=== PATIENT | female | born 1980 | race Caucasian/White ===

== ENCOUNTER 2020-06-25 21:46 | Inpatient (IN) | payer OTHER ==
[~2020-06-25] VITALS: Ht 167.6 cm; Wt 50.0 kg
[2020-06-26 00:40] LABS: BILIRUBIN,TOTAL 0.4 mg/dL (0.0-1.0); CALCIUM 8.9 mg/dL (8.4-10.2); CREATININE, serum 0.54 (0.52-1.25); POTASSIUM 3.6 mmol/L (3.4-5.0); TOTAL PROTEIN 6.7 gm/dL (6.4-8.2)
[2020-06-26 00:44] LABS: BASO % 0.2 % (0.0-2.0); EOS # 0.1 (0.0-0.7); EOS % 0.5 % (0-4.0); GRAN # 11.7 (1.4-6.5); GRAN % 82.3 % (42.2-75.2); HEMATOCRIT 34.8 % (37.0-47.0); HEMOGLOBIN 11.4 g/dl (12.5-16.0); LYMPH # 1.2 (1.2-3.4); LYMPH % 8.5 % (20.0-51.0); MEAN CELL VOLUME 91 fl (80.0-100.0); MEAN CORPUSCULAR HEMOGLOBIN 30 pg (27.0-31.0); MEAN CORPUSCULAR HGB CONC 33 g/dl (33.0-37.0); MEAN PLATELET VOLUME 9.9 fl (7.4-10.4); MONO # 1.1 (0.1-0.6); PLATELET COUNT 264 K/mm3 (130-400); RED BLOOD COUNT 3.83 M/mm3 (4.10-5.30); REDCELL DISTRIBUTION WIDTH-CV 11.9 % (11.5-14.5)
[2020-06-26 01:00] VITALS: BP 118/62; PULSE 96; TEMP 98.2
--- NOTE | 2020-06-26 01:00 | NUR ---
Pt arrived on unit from ED via stretcher. Assisted pt to bed. Oriented to room, bed and call light within reach. IV antibiotics infusing. See EMAR for details. Plan of care and orders reviewed with pt.
[2020-06-26 06:00] VITALS: BP 86/46; PULSE 86; TEMP 98.4
[2020-06-26 09:17] VITALS: BP 88/45; PULSE 89; TEMP 98.2
--- NOTE | 2020-06-26 09:28 | NUR ---
Initial visit; attempt; Patient sleeping, [employer] Custodian left card with information regarding the availability of spiritual care at our hospital.
[2020-06-26 13:00] VITALS: BP 82/45; PULSE 87; TEMP 98.1
[2020-06-26 17:58] VITALS: BP 82/37; PULSE 84; TEMP 97.4
[2020-06-26 20:30] VITALS: BP 85/54; PULSE 92; TEMP 97.7
[2020-06-27 01:00] VITALS: BP 90/40; PULSE 90; TEMP 97.7
[2020-06-27 05:30] VITALS: BP 92/40; PULSE 71; TEMP 97.9
[2020-06-27 09:00] VITALS: BP 90/44; PULSE 89; TEMP 98.3
[2020-06-27 09:22] LABS: BASO % 0.3 % (0.0-2.0); EOS # 0.2 (0.0-0.7); EOS % 2.1 % (0-4.0); GRAN # 6.5 (1.4-6.5); GRAN % 72.2 % (42.2-75.2); HEMOGLOBIN 10.8 g/dl (12.5-16.0); LYMPH # 1.6 (1.2-3.4); LYMPH % 17.8 % (20.0-51.0); MEAN CELL VOLUME 93 fl (80.0-100.0); MEAN CORPUSCULAR HEMOGLOBIN 30 pg (27.0-31.0); MEAN CORPUSCULAR HGB CONC 32 g/dl (33.0-37.0); MEAN PLATELET VOLUME 10.3 fl (7.4-10.4); MONO # 0.7 (0.1-0.6); MONO % 7.3 % (1.7-9.3); PLATELET COUNT 249 K/mm3 (130-400); RED BLOOD COUNT 3.58 M/mm3 (4.10-5.30)
[2020-06-27 09:26] LABS: HEMATOCRIT 33.4 % (37.0-47.0)
--- NOTE | 2020-06-27 11:31 | NUR ---
Financial Counselor, Alejandrina, notified DEBBIE that she completed a Medicaid application with the patient and needs the Release of Information Forms signed. DEBBIE met with the patient and presented the forms. The patient signed the forms. DEBBIE emailed the signed forms back to Alejandrina.
[2020-06-27 13:17] VITALS: BP 95/49; PULSE 94; TEMP 98
[2020-06-27 19:30] VITALS: BP 95/46; PULSE 92; TEMP 97.9
[2020-06-28 00:30] VITALS: BP 95/54; PULSE 89; TEMP 98.7
[2020-06-28 05:15] VITALS: BP 92/42; PULSE 91; TEMP 99
[2020-06-28 07:50] VITALS: BP 10/56; BP 100/56; PULSE 92; TEMP 98.8
[2020-06-28 11:05] VITALS: BP 95/42; PULSE 99; TEMP 98.5
[2020-06-28] MEDS ORDERED: PERCOCET 325 MG1 TA2 PO (11:41)
[2020-06-28] MEDS ORDERED: IBU600 MG PO (11:41)
[2020-06-28] MEDS ORDERED: DOXYCYCLINE HY100 MG PO (11:43)
--- NOTE | 2020-06-28 12:30 | NUR ---
Patient escorted off of unit via wheelchair to ER entrance where ride awaits. Patient given discharge instructions and return precautions.
--- NOTE | 2020-06-29 12:14 | NUR ---
SW received consult and sent referral to [employer] Clerk Department to call client. No contact made with this patient on SW behalf.
== END 2020-06-28 12:30 | disposition home or self-care (01) | DRG 603 ==
LOC: COL.ER 21:46 → OB 23:22
PROVIDERS: ADMIT Obstetrics & Gynecology
DX: L03.315 Cellulitis of perineum (principal); F41.9 Anxiety disorder, unspecified; G47.00 Insomnia, unspecified
CPT/HCPCS: J2405; J2543; J3370; J7050

== ENCOUNTER 2020-07-06 17:38 | Emergency (ER) | payer SELFPAY ==
[~2020-07-06] VITALS: Ht 167.6 cm; Wt 50.0 kg
[~2020-07-06 17:38] MED LIST: DOXYCYCLINE HY100 MG PO; IBU600 MG PO; PERCOCET 325 MG1 TA2 PO
[2020-07-06 17:55] VITALS: TEMP 98.7
[2020-07-06 19:30] LABS: BASO % 0.8 % (0.0-2.0); EOS # 0.1 (0.0-0.7); EOS % 2.4 % (0-4.0); GRAN # 2.9 (1.4-6.5); GRAN % 56.7 % (42.2-75.2); HEMATOCRIT 38.2 % (37.0-47.0); HEMOGLOBIN 12.5 g/dl (12.5-16.0); LYMPH # 1.6 (1.2-3.4); LYMPH % 31.4 % (20.0-51.0); MEAN CELL VOLUME 90 fl (80.0-100.0); MEAN CORPUSCULAR HEMOGLOBIN 29 pg (27.0-31.0); MEAN CORPUSCULAR HGB CONC 33 g/dl (33.0-37.0); MEAN PLATELET VOLUME 9.7 fl (7.4-10.4); MONO # 0.4 (0.1-0.6); MONO % 8.5 % (1.7-9.3); PLATELET COUNT 456 K/mm3 (130-400); RED BLOOD COUNT 4.25 M/mm3 (4.10-5.30); REDCELL DISTRIBUTION WIDTH-CV 12.3 % (11.5-14.5)
[2020-07-06 19:41] LABS: ALBUMIN 4.6 gm/dL (3.5-5.0); BILIRUBIN,TOTAL 0.6 mg/dL (0.0-1.0); CALCIUM 9.6 mg/dL (8.4-10.2); CREATININE, serum 0.72 (0.52-1.25); POTASSIUM 3.7 mmol/L (3.4-5.0); TOTAL PROTEIN 7.4 gm/dL (6.4-8.2)
[2020-07-06] MEDS ORDERED: DOXYCYCLINE 10100 MG PO (22:40)
[2020-07-07 00:28] VITALS: BP 105/74; PULSE 85
== END 2020-07-07 00:28 | disposition home or self-care (01) ==
LOC: COL.ER 17:38
PROVIDERS: Nurse Practitioner Primary Care
DX: N76.2 Acute vulvitis (principal); F17.210 Nicotine dependence, cigarettes, uncomplicated; Z88.6 Allergy status to analgesic agent
CPT/HCPCS: J0696; J2405; J3010; J3370; J7030; J7050; Q9967